=== PATIENT | male | born 1935 ===

== ENCOUNTER 2017-06-04 03:25 | Outpatient (CLI) | payer MEDICARE, BC | END 2017-06-04 23:59 | disposition home or self-care (01) | LOC: DIABETIC 03:25 | PROVIDERS: ATTEND Internal Medicine | DX: E11.9 Type 2 diabetes mellitus without complications (principal) | CPT/HCPCS: G0108 ==

== ENCOUNTER 2017-08-27 03:57 | Outpatient (CLI) | payer MEDICARE, BC | END 2017-08-27 23:59 | disposition home or self-care (01) | LOC: DIABETIC 03:57 | PROVIDERS: ATTEND Internal Medicine | DX: E11.9 Type 2 diabetes mellitus without complications (principal) | CPT/HCPCS: G0108 ==

== ENCOUNTER 2017-12-02 02:03 | Outpatient (CLI) | payer MEDICARE, BC | END 2017-12-02 23:59 | disposition home or self-care (01) | LOC: DIABETIC 02:03 | PROVIDERS: ATTEND Internal Medicine | DX: E11.9 Type 2 diabetes mellitus without complications (principal); Z79.82 Long term (current) use of aspirin | CPT/HCPCS: G0108 ==

== ENCOUNTER 2018-07-08 02:29 | Outpatient (CLI) | payer MEDICARE, BC | END 2018-07-08 23:59 | disposition home or self-care (01) | LOC: DIABETIC 02:29 | PROVIDERS: ATTEND Internal Medicine | DX: E11.9 Type 2 diabetes mellitus without complications (principal); Z79.82 Long term (current) use of aspirin | CPT/HCPCS: G0108 ==

== ENCOUNTER 2018-10-13 04:15 | Outpatient (CLI) | payer MEDICARE, BC | END 2018-10-13 23:59 | disposition home or self-care (01) | LOC: DIABETIC 04:15 | PROVIDERS: ATTEND Internal Medicine | DX: E11.9 Type 2 diabetes mellitus without complications (principal); Z79.899 Other long term (current) drug therapy | CPT/HCPCS: G0108 ==

== ENCOUNTER 2019-02-11 01:41 | Outpatient (CLI) | payer MEDICARE, BC | END 2019-02-11 23:59 | disposition home or self-care (01) | LOC: DIABETIC 01:41 | PROVIDERS: ATTEND Internal Medicine | DX: E11.9 Type 2 diabetes mellitus without complications (principal); Z79.82 Long term (current) use of aspirin; Z79.899 Other long term (current) drug therapy | CPT/HCPCS: G0108 ==

== ENCOUNTER 2019-05-20 00:57 | Outpatient (CLI) | payer MEDICARE, BC | END 2019-05-20 23:59 | disposition home or self-care (01) | LOC: DIABETIC 00:57 | PROVIDERS: ATTEND Internal Medicine | DX: E11.9 Type 2 diabetes mellitus without complications (principal); Z79.4 Long term (current) use of insulin | CPT/HCPCS: G0108 ==